=== PATIENT | female | born 1930 | race Caucasian/White ===

== ENCOUNTER 2017-07-30 21:21 | Inpatient (IN) | payer OTHER, BC ==
[~2017-07-30] VITALS: Ht 160 cm; Wt 56.2 kg
[~2017-07-30 21:21] MED LIST: BREO ELLIPTA I1 EACH IH; BUSPAR10 MG PO; CYMBALTA60 MG PO; EXCEDRIN MIGRA1 EAC3 PO; EYE OINTMENT RIGHT EYE; LATANOPROST2.5 ML BOTH EYES; LIPITOR10 MG PO; MIACALCIN4 ML NS; ONE DAILY FOR1 EAC1 PO; PAIN RELIEF PM1 EACH PO; PROAIR HFA8.5 GM IH; SYMBICORT60 INHALAT IH; SYNTHROID50 MCG PO; TORADOL10 MG PO; TRIAMTERENE/HC1 EACH PO
[2017-07-31 11:23] VITALS: BP 156/70
[2017-07-31 16:16] VITALS: BP 144/65
[2017-07-31 21:16] VITALS: BP 138/65
[2017-08-01] VITALS (7 sets, daily range): BP systolic 112–150; BP diastolic 53–83
[2017-08-01 10:36] LABS: HEMATOCRIT 36.7 % (36.0-46.0); MCHC 33.5 G/DL (30.0-36.0); MCV 92.4 FL (83-99); MEAN PLAT.VOLUME 9.6 uM^3 (9.5-12.4); PLATELET COUNT 251 K/uL (156-360); RBC DIS.WIDTH-CV 12.8 % (11.8-14.6); RBC DIS.WIDTH-SD 43.8 % (39-53); RED BLOOD COUNT 3.97 M/uL (3.80-5.20); WHITE BLOOD COUNT 14.1 K/uL (4.1-10.2)
[2017-08-01 11:03] LABS: ANION GAP 7 MEQ/L (2-14); CHLORIDE 99 MEQ/L (99-109); GFR ESTIMATE (CALCULATED) > 59 mL/min/; GLUCOSE 82 mg/dL (70-99); POTASSIUM 4.2 MEQ/L (3.7-5.4); SAMPLE HEMOLYSIS CHECK 0; SAMPLE ICTERIC CHECK 0; SAMPLE LIPEMIA CHECK 0; SODIUM 135 MEQ/L (136-147); UREA NITROGEN (BUN) 12 mg/dL (9-23)
[2017-08-02 03:56] VITALS: BP 149/70
[2017-08-02 07:10] VITALS: BP 140/63
[2017-08-02 11:15] VITALS: BP 135/63
[2017-08-02] MEDS ORDERED: NORCO 5/3251 TABLET PO (12:15)
[2017-08-02 15:30] VITALS: BP 127/58
[2017-08-02 22:24] LABS: ADD MIUA? YES; BILIRUBIN NEGATIVE; BLOOD NEGATIVE; COLOR YELLOW ((YELLOW)); GLUCOSE (STRIP) NEGATIVE; KETONES NEGATIVE; LEUKOCYTES LARGE; NITRITE NEGATIVE; PROTEIN (STRIP) NEGATIVE; SPECIFIC GRAVITY 1.017 (1.000-1.030); UROBILINOGEN 0.2 MG/DL (0.2-1.0)
[2017-08-02 22:49] LABS: BACTERIA RARE /HPF; EPITHELIAL CELLS RARE /HPF; MUCUS TRACE /LPF; RED BLOOD CELLS 0-5 /HPF (0-5); UCUL ADDED? YES; UNCLASSIFIED CASTS 0-5 /LPF; WHITE BLOOD CELLS 20-30 /HPF (0-5)
[2017-08-02 23:36] VITALS: BP 140/67
[2017-08-03 07:40] LABS: HEMATOCRIT 37.2 % (36.0-46.0); MCH 31.9 PG (29.0-34.0); MCHC 33.9 G/DL (30.0-36.0); MCV 94.2 FL (83-99); MEAN PLAT.VOLUME 10.2 uM^3 (9.5-12.4); PLATELET COUNT 229 K/uL (156-360); RBC DIS.WIDTH-CV 13.2 % (11.8-14.6); RBC DIS.WIDTH-SD 45.2 % (39-53); RED BLOOD COUNT 3.95 M/uL (3.80-5.20); WHITE BLOOD COUNT 8.2 K/uL (4.1-10.2)
[2017-08-03 08:10] VITALS: BP 142/80
[2017-08-03 15:55] VITALS: BP 155/75
== END 2017-08-03 20:05 | disposition home or self-care (01) | DRG 330 ==
LOC: ENRESERV 21:21 → 2SOUTH 07-31 09:50 → 2EASTP 07-31 11:02 → 2SOUTH 07-31 11:02 → ENRESERV 07-31 14:57 → 2SOUTH 07-31 15:30 → ENRESERV 07-31 15:30 → 2SOUTH 07-31 15:31 → 2EASTP 07-31 16:03
PROVIDERS: Physician Assistant; Surgery
PROC: 0D1N4Z4 Bypass Sigmoid Colon to Cutaneous, Percutaneous Endoscopic Approach (ICD-10-PCS; principal; 2017-07-31)
DX: K62.3 Rectal prolapse (principal); K59.00 Constipation, unspecified; I10 Essential (primary) hypertension; K66.0 Peritoneal adhesions (postprocedural) (postinfection); M19.90 Unspecified osteoarthritis, unspecified site; J44.9 Chronic obstructive pulmonary disease, unspecified; M25.561 Pain in right knee; D72.829 Elevated white blood cell count, unspecified; Z96.652 Presence of left artificial knee joint; Z90.11 Acquired absence of right breast and nipple; Z85.828 Personal history of other malignant neoplasm of skin; Z90.710 Acquired absence of both cervix and uterus; Z68.1 Body mass index [BMI] 19.9 or less, adult
CPT/HCPCS: 71020; 80048; 81003; 85027; 86850; 86900; 86901; 87086; 93005; 93971; G0378; J1100; J2405; J2710; J3010; J7120

== ENCOUNTER 2017-09-14 14:47 | Emergency (ER) | payer OTHER, BC ==
[~2017-09-14] VITALS: Ht 160 cm; Wt 45.0 kg
[~2017-09-14 14:47] MED LIST changes: +NORCO 5/3251 TABLET PO
[2017-09-14 18:38] VITALS: BP 155/89
== END 2017-09-14 18:46 | disposition home or self-care (01) ==
LOC: EME 14:47
DX: Z43.3 Encounter for attention to colostomy (principal)
CPT/HCPCS: 99281; 99285

== ENCOUNTER → 2018-03-27 | Outpatient (CLI) | payer OTHER, BC | END | disposition home or self-care (01) | LOC: NUC 09:48 | DX: M41.85 Other forms of scoliosis, thoracolumbar region (principal); Z96.652 Presence of left artificial knee joint; R93.7 Abnormal findings on diagnostic imaging of other parts of musculoskeletal system | CPT/HCPCS: 78306; A9503 ==

== ENCOUNTER 2018-05-01 23:25 | Inpatient (IN) | payer OTHER, BC ==
[~2018-05-01] VITALS: Ht 160 cm; Wt 44.5 kg
[2018-05-01 23:51] LABS: HEMATOCRIT 41.4 % (36.0-46.0); HEMOGLOBIN 13.6 G/DL (11.9-15.5); MCH 30.3 PG (29.0-34.0); MCHC 32.9 G/DL (30.0-36.0); MCV 92.2 FL (83-99); PLATELET COUNT 275 K/uL (156-360); RBC DIS.WIDTH-CV 12.8 % (11.8-14.6); RBC DIS.WIDTH-SD 43.3 % (39-53); RED BLOOD COUNT 4.49 M/uL (3.80-5.20); WHITE BLOOD COUNT 14.3 K/uL (4.1-10.2)
[2018-05-02 00:05] LABS: CHLORIDE 110 mEq/L (99-109); POTASSIUM 3.8 mEq/L (3.7-5.4); SODIUM 143 mEq/L (136-147)
[2018-05-02 00:07] LABS: GLUCOSE 98 mg/dL (70-99)
[2018-05-02 00:11] LABS: CREATININE 0.7 mg/dL (0.6-1.3); GFR ESTIMATE (CALCULATED) > 59 mL/min/
[2018-05-02 00:12] LABS: UREA NITROGEN (BUN) 30 mg/dL (9-23)
[2018-05-02 00:14] LABS: TROP-I INTERPRETATION NEGATIVE; TROPONIN-I 0.02 ng/mL (0.0-0.30)
[2018-05-02] MEDS ORDERED: SYMBICORT60 INHALA1 IH (01:34)
[2018-05-02] MEDS ORDERED: LEVAQUIN500 MG PO (01:34)
[2018-05-02 05:00] VITALS: BP 147/70
[2018-05-02 08:07] VITALS: BP 149/68
[2018-05-02 11:24] VITALS: BP 129/63
[2018-05-02 16:47] VITALS: BP 126/58
[2018-05-02 18:07] LABS: APPEARANCE SL.HAZY ((CLEAR)); BILIRUBIN NEGATIVE; BLOOD NEGATIVE; COLOR YELLOW ((YELLOW)); GLUCOSE (STRIP) NEGATIVE; KETONES 5; LEUKOCYTES SMALL; NITRITE NEGATIVE; PROTEIN (STRIP) NEGATIVE; SPECIFIC GRAVITY 1.021 (1.000-1.030); UROBILINOGEN 0.2 MG/DL (0.2-1.0)
[2018-05-02 18:25] LABS: BACTERIA NONE SEEN /HPF; EPITHELIAL CELLS RARE /HPF; HYALINE CASTS 0-5 /LPF; MUCUS 1+ /LPF; RED BLOOD CELLS 0-5 /HPF (0-5); UCUL ADDED? YES
[2018-05-02 20:37] VITALS: BP 139/65
[2018-05-02 23:27] VITALS: BP 133/58
[2018-05-03] VITALS (7 sets, daily range): BP systolic 115–175; BP diastolic 56–79
[2018-05-03 05:04] LABS: APPEARANCE CLEAR ((CLEAR)); BILIRUBIN NEGATIVE; BLOOD NEGATIVE; COLOR YELLOW ((YELLOW)); GLUCOSE (STRIP) >=500; KETONES 5; LEUKOCYTES NEGATIVE; NITRITE NEGATIVE; PROTEIN (STRIP) NEGATIVE; SPECIFIC GRAVITY 1.023 (1.000-1.030); UCUL ADDED? NO; UROBILINOGEN 0.2 MG/DL (0.2-1.0)
[2018-05-03 06:24] LABS: HEMATOCRIT 41.3 % (36.0-46.0); MCHC 31.5 G/DL (30.0-36.0); MCV 92.2 FL (83-99); PLATELET COUNT 215 K/uL (156-360); RBC DIS.WIDTH-CV 12.7 % (11.8-14.6); RBC DIS.WIDTH-SD 43.1 % (39-53); RED BLOOD COUNT 4.48 M/uL (3.80-5.20); WHITE BLOOD COUNT 10.5 K/uL (4.1-10.2)
[2018-05-03 06:51] LABS: CHLORIDE 108 MEQ/L (99-109); CREATININE 0.5 MG/DL (0.6-1.3); GFR ESTIMATE (CALCULATED) > 59 mL/min/; GLUCOSE 140 mg/dL (70-99); POTASSIUM 4.2 MEQ/L (3.7-5.4); SODIUM 143 MEQ/L (136-147); UREA NITROGEN (BUN) 27 mg/dL (9-23)
[2018-05-04 04:14] VITALS: BP 135/65
[2018-05-04 08:54] VITALS: BP 144/67
[2018-05-04 11:30] VITALS: BP 138/69
[2018-05-04 15:30] VITALS: BP 133/59
[2018-05-04 20:27] VITALS: BP 147/67
[2018-05-04 23:26] VITALS: BP 142/67
[2018-05-05 04:06] VITALS: BP 157/77
[2018-05-05 08:20] VITALS: BP 151/84
[2018-05-05 11:23] VITALS: BP 138/70
[2018-05-05] MEDS ORDERED: LEVAQUIN500 MG PO (12:28)
[2018-05-05] MEDS ORDERED: VENTOLIN HFA18 GM IH (12:29)
[2018-05-05] MEDS ORDERED: PREDNISONE10 MG PO (12:29)
== END 2018-05-05 13:55 | DRG 202 ==
LOC: EME → EDBD 23:25 → EME 23:25 → EDOF 05-02 03:16 → 3EAST 05-02 03:16 → ENRESERV 05-02 03:20 → CANRESERV 05-02 03:20 → ENRESERV 05-02 03:31 → 3EAST 05-02 04:56
PROVIDERS: Emergency Medicine; Hospitalist
DX: J20.9 Acute bronchitis, unspecified (principal); J96.01 Acute respiratory failure with hypoxia; J84.10 Pulmonary fibrosis, unspecified; I10 Essential (primary) hypertension; E03.9 Hypothyroidism, unspecified; F32.9 Major depressive disorder, single episode, unspecified; E78.00 Pure hypercholesterolemia, unspecified; E78.5 Hyperlipidemia, unspecified; R63.6 Underweight; Z96.652 Presence of left artificial knee joint; Z66 Do not resuscitate; Z93.3 Colostomy status; Z86.73 Personal history of transient ischemic attack (TIA), and cerebral infarction without residual deficits; Z68.1 Body mass index [BMI] 19.9 or less, adult
CPT/HCPCS: 71045; 80048; 81003; 84484; 85027; 87070; 87086; 87205; 93005; 94640; 94640 76; 94799; 99202; 99281; 99285; J0692; J1644; J2920; J7512

== ENCOUNTER 2018-05-05 13:00 | Inpatient (IN) | payer OTHER, BC ==
[~2018-05-05] VITALS: Ht 157.5 cm; Wt 46.7 kg
[~2018-05-05 13:00] MED LIST changes: +LEVAQUIN500 MG PO; +PREDNISONE10 MG PO; +SYMBICORT60 INHALA1 IH; +VENTOLIN HFA18 GM IH
[2018-05-05 14:15] VITALS: BP 135/63
[2018-05-05 15:19] VITALS: BP 117/56
[2018-05-05 23:25] VITALS: BP 143/69
[2018-05-06 05:17] VITALS: BP 151/85
[2018-05-06 15:51] VITALS: BP 118/54
[2018-05-07 05:11] VITALS: BP 128/69
[2018-05-07 15:36] VITALS: BP 115/68
[2018-05-08 06:52] VITALS: BP 117/57
[2018-05-08 14:17] VITALS: BP 108/60
[2018-05-09 04:54] VITALS: BP 120/63
[2018-05-09 16:38] VITALS: BP 121/63
[2018-05-10 05:42] VITALS: BP 128/80
[2018-05-10 15:24] VITALS: BP 107/57
[2018-05-11 05:07] VITALS: BP 122/60
[2018-05-11 15:21] VITALS: BP 120/58
[2018-05-11 15:56] VITALS: BP 111/66
[2018-05-12 05:27] VITALS: BP 107/56
[2018-05-12 15:48] VITALS: BP 125/59
[2018-05-13 04:58] VITALS: BP 115/70
[2018-05-13] MEDS ORDERED: SPIRIVA RESPIMAT4 GM IH (13:18)
[2018-05-13] MEDS ORDERED: PRAVASTATIN SOD40 MG PO (13:18)
[2018-05-13] MEDS ORDERED: PREDNISONE20 MG PO (13:18)
[2018-05-13] MEDS ORDERED: LEVOFLOXACIN750 MG PO (13:18)
== END 2018-05-13 13:50 | disposition home or self-care (01) | DRG 189 ==
LOC: 3WEST 13:00 → ENPENDDIS 05-13 → 3WEST 05-13 13:50
PROC: F07M0ZZ Range of Motion and Joint Mobility Treatment of Musculoskeletal System - Whole Body (ICD-10-PCS; principal; 2018-05-05)
DX: J96.01 Acute respiratory failure with hypoxia (principal); R64 Cachexia; J44.0 Chronic obstructive pulmonary disease with (acute) lower respiratory infection; J44.1 Chronic obstructive pulmonary disease with (acute) exacerbation; J84.10 Pulmonary fibrosis, unspecified; Z93.3 Colostomy status; R54 Age-related physical debility; I10 Essential (primary) hypertension; F32.9 Major depressive disorder, single episode, unspecified; E03.9 Hypothyroidism, unspecified; Z86.73 Personal history of transient ischemic attack (TIA), and cerebral infarction without residual deficits; Z68.1 Body mass index [BMI] 19.9 or less, adult; E78.00 Pure hypercholesterolemia, unspecified; Z77.22 Contact with and (suspected) exposure to environmental tobacco smoke (acute) (chronic); J20.9 Acute bronchitis, unspecified; R26.9 Unspecified abnormalities of gait and mobility
CPT/HCPCS: 71250; 94640 76; 97110 GO; 97530 GP; J1644; J7512